=== PATIENT | male | born 1930 | race Caucasian/White ===

== ENCOUNTER → 2016-03-17 | Outpatient (CLI) | payer OTHER ==
--- NOTE | ~2016-03-17 | PR ---
[place], [place] PROGRESS NOTE NAME: THOR YI [facility] #: [id number] UNIT #: [id number] ROOM: DOCTOR: NELIDA NagelCARLOS ALBERTO BIRTHDATE: [birth year] DOS: 03/17/2016 NEW PATIENT EVALUATION CHIEF COMPLAINT: Left leg ulceration. HISTORY OF PRESENT ILLNESS: This is an 86-year-old male with a history of type 2 diabetes who was referred to the Wound Clinic for a wound of the left lower extremity, located in the anterior tibia. Apparently, it started out as a blister of the anterior tibia that opened up and there was some surrounding erythema per patient report and some discomfort of the leg. The patient was treated with oral antibiotics, initially was given Keflex and then was reevaluated on the 03/14/2016 and given a script for Bactrim double strength twice a day as he continued to have complaints with the leg. Apparently, there were some complaints of yellow drainage at the time when he was evaluated. The patient says he has about 2 days left of his Bactrim and then will be out of it. Overall, the redness is much improved around the wound according to the patient and the family. His is with him. They deny any fevers or chills. Does not complain of profuse amount of drainage. PAST MEDICAL HISTORY: Significant for the following: He does have a history of leg edema. It is much worse at the end of the day than in the beginning of the day. He has a history of asthma, a history of congestive heart failure, hypertension, coronary artery disease, COPD, diabetes, hyperlipidemia. His most recent sugar that he checked was 80 at breakfast time. He does have a history of stage 4 kidney disease, history of melanoma of the right cheek which is being managed by Dermatology. He has a left rotator cuff repair. FAMILY HISTORY: Significant for stroke in his mother, cancer in his father, mother, and siblings, diabetes in his mother and siblings, heart disease in his father. He is a former smoker. He is . He does not drink alcohol or abuse drugs. ALLERGIES: ARE TO THE FOLLOWING, MORPHINE AND PENICILLIN. CURRENT MEDICATIONS: Low dose aspirin 81 mg daily, Glimepiride 4 mg b.i.d., pioglitazone 30 mg daily, simvastatin 40 daily, lisinopril 2.5 daily, terbutaline 2.5 t.i.d., Lasix 20 daily, methocarbamol 750 t.i.d. as needed, hydrochlorothiazide 25 daily, Keflex, which was completed and now the patient is on double strength Bactrim twice a day. He was given 5 days' worth. REVIEW OF SYSTEMS: He denies any fevers or chills. He does get dyspneic on exertion which is at baseline. No nausea, vomiting, fevers, chills, or diarrhea at the present time. His notes a bump on the outer part of his nose and is asking what I think this is. The patient reporthe has followup appointment with Dermatology. PHYSICAL EXAMINATION: VITAL SIGNS: Blood pressure 142/50, pulse of 80, respirations 20, temperature is 98.4. [place], [place] PROGRESS NOTE NAME: THOR YI UNIT #: [id number] ROOM: DOCTOR: CARLOS ALBERTO KRAUSE M.D. BIRTHDATE: [birth year] GENERAL: This is an elderly male who appears younger than his stated age, in no acute distress. He has no JVD. LUNGS: Have decreased breath sounds in the bases and there is a mild expiratory wheeze. CARDIOVASCULAR: S1, S2, regular rate and rhythm. ABDOMEN: Obese, soft, and nontender. EXTREMITIES: He has about 1-2+ pitting edema bilaterally. He has some chronic venous stasis changes of both of his lower extremities. His pedal pulses are palpable. His feet are warm. He has got a good capillary refill. He does have a wound present on the anterior tibia of the left leg, which is measuring 2.5 x 2.5 x 0.1. There is some minimal surrounding erythema. It is not warm. It is not tender. His SABIHA was 0.93 on the left and 0.8 on the right. There is no necrosis, no purulence noted and it is very superficial. No debridement done. ASSESSMENT AND PLAN: Probable venous stasis ulcer superficial secondary to his edema. I told him to stop using the bacitracin and we will use Adaptic and Puracol Ag for now. He is going to change it every other day and follow up with us in one week. I think he should have some compression stockings. A script was written for a pair of compression stockings, a light compression 10-20 mmHg. I think this would probably he be able to tolerate it fairly well. In addition, I did discuss with concern of Bactrim and renal failure and asked him to instead of taking the double strength to cut it to a single strength for the rest of the time he used to be on the antibiotic, which he only has approximately 2 days left of it. So, I did explain my concern of this and so the patient and the family are aware of the recommendation. Also the area on his nose, the is unsure of. It is not an open wound. It is not a definite ulcer, but there is a protrusion and what appears to be a nodule forming with increased blood vessels and telangiectasias. This may be an early basal cell. I would like the patient to follow up with the advertising analyst when he sees him later this week. Follow up in the Wound Clinic in one week. CARLOS ALBERTO KRAUSE MD CM:PNTRANS [id number] CARLOS ALBERTO KRAUSE M.D. 03/19/16 0752 interface
== END ==
LOC: WOUNDCARE 03:43
DX: E11.622 Type 2 diabetes mellitus with other skin ulcer (principal); L97.821 Non-pressure chronic ulcer of other part of left lower leg limited to breakdown of skin; I87.2 Venous insufficiency (chronic) (peripheral); J44.9 Chronic obstructive pulmonary disease, unspecified; E11.22 Type 2 diabetes mellitus with diabetic chronic kidney disease; I13.0 Hypertensive heart and chronic kidney disease with heart failure and stage 1 through stage 4 chronic kidney disease, or unspecified chronic kidney disease; N18.4 Chronic kidney disease, stage 4 (severe); I50.9 Heart failure, unspecified; E78.5 Hyperlipidemia, unspecified; I25.10 Atherosclerotic heart disease of native coronary artery without angina pectoris; Z85.820 Personal history of malignant melanoma of skin; Z87.891 Personal history of nicotine dependence

== ENCOUNTER → 2016-03-24 | Outpatient (CLI) | payer OTHER ==
--- NOTE | ~2016-03-24 | PR ---
[place], [place] PROGRESS NOTE NAME: THOR YI [facility] #: [id number] UNIT #: [id number] ROOM: DOCTOR: CARLOS ALBERTO KRAUSE M.D. BIRTHDATE: [birth year] DOS: 03/24/2016 CHIEF COMPLAINT: Followup of left leg ulceration. HISTORY OF PRESENT ILLNESS: An 86-year-old male with type 2 diabetes who was seen in the Wound Clinic last week for a superficial ulcer of the left lower extremity that initially started out by a blister and had some concern of cellulitis. The patient was given antibiotics per PCP and was sent here for further management. The patient's wound was noted to be fairly superficial. It had started out as a blister. There was edema that was noted, which is chronic per patient and family report. The patient was advised to use Puracol and Adaptic as a wound dressing. Puracol silver was utilized. The patient after his admission here in the wound clinic a week ago, he apparently had to be admitted to the hospital for worsening renal failure secondary to what sounds like obstructive renal problem, had to have a catheter for drainage of urine so he does have a catheter in at this time. Overall, he is currently not on any antibiotics. His wound appears to have healed. He is denying any pain, fevers, or chills. OBJECTIVE: VITAL SIGNS: Stable. Temperature is 98.6, pulse is 100, respirations 20, blood pressure is 120/60. WOUND EXAMINATION: The wound is healed. It is not open. There is no cellulitis. It has some hemosiderin type staining at this time. It is not pruritic. It is not causing him any discomfort and the edema seems to be improved overall from last week. ASSESSMENT AND PLAN: Healed venous stasis ulcer. We will discharge the patient. At this time, I did recommend for him to try compression stockings as this could be a recurrent problem and he does have a script for it, so once he has got some time to try, he will try and get these done. I did advise to keep the area moisturized and open at this time. CARLOS ALBERTO KRAUSE MD CM:PNTRANS [id number] CARLOS ALBERTO KRAUSE M.D. 03/24/16 2245 interface
== END ==
LOC: WOUNDCARE 01:29
DX: E11.622 Type 2 diabetes mellitus with other skin ulcer (principal); L97.821 Non-pressure chronic ulcer of other part of left lower leg limited to breakdown of skin; I87.2 Venous insufficiency (chronic) (peripheral)

== ENCOUNTER 2018-05-13 15:57 | Emergency (ER) | payer MEDICARE ==
[~2018-05-13] VITALS: Ht 170.1 cm; Wt 84.4 kg
--- NOTE | ~2018-05-13 | EKG ---
[place], [place] ELECTROCARDIOGRAM REPORT NAME: THOR YI UNIT #: [id number] ROOM: DOCTOR: EPIPHANY DRAFT REPORT BIRTHDATE: [birth year] [facility] Test Date: 2018-05-13 Test Time: 16:12:52 Pat Name: THOR YI Department: ER Room: 1 Gender: M Hotel Operations Manager: Radha Watkins : 1930 Requested By: HUMPHREY ZUNIGA Order Number: [id number] Reading MD: Neil Beal MD Measurements Intervals [place] Rate: 91 P: 51 NM: 147 QRS: 6 QRSD: 148 T: 99 QT: 432 QTc: 532 Interpretive Statements Sinus rhythm Nonspecific intraventricular conduction delay Borderline T abnormalities, lateral leads Baseline wander in lead(s) V1,V2 Electronically Signed On 05-17-2018 8:20:08 PDT by Neil Beal MD CM:EKGRPT:ELECTROCARDIOGRAM REPORT 1612 0820 HUMPHREY TUCKER DRAFT REPORT HUMPHREY ZUNIGA M.D.
[2018-05-13 16:18] LABS: BASO # 0.1 10*3/uL (0.0-0.1); BASO % 0.5 % (0.0-1.0); EOS # 0.4 10*3/uL (0.0-0.4); EOS % 4.1 % (1.0-4.0); HEMATOCRIT 36.7 % (42.0-52.0); HEMOGLOBIN 12.3 g/dl (14.0-18.0); MEAN CELL VOLUME 99.2 fl (80.0-94.0); MEAN CORPUSCULAR HGB 33.2 pg (27.0-31.0); MEAN CORPUSCULAR HGB CONC 33.5 g/dl (33.0-37.0); MEAN PLATELET VOLUME 9.4 fl (9.6-12.3); MONO # 0.8 10*3/uL (0.1-1.0); MONO % 8.7 % (3.0-9.0); NEUT # 5.3 10*3/uL (2.3-7.9); NEUT % 55.1 % (47.0-73.0); PLATELET COUNT AUTOMATED 293 10*3/uL (130-400); RED CELL DISTRI WIDTH 12.9 % (0-14.5); WHITE BLOOD COUNT 9.7 10*3/uL (4.8-10.8)
[2018-05-13 16:27] LABS: ACT PARTIAL THROMBO TIME 22.7 SECONDS (20.8-31.5); INTERNATIONAL NORM RATIO 0.9 (2.0-3.5)
[2018-05-13 16:41] LABS: ALBUMIN 3.5 gm/dl (3.1-4.5); ALKALINE PHOSPHATASE 99 U/L (45-117); BUN 32 mg/dl (7-24); CHLORIDE 104 mmol/L (98-107); CREATININE 2.25 mg/dL (0.70-1.30); POTASSIUM 4.7 mmol/L (3.5-5.1); SGOT/AST 20 IU/L (3-35); SGPT/ALT 36 U/L (12-78); SODIUM 139 mmol/L (136-145); TOTAL PROTEIN 7.6 gm/dL (6.4-8.2)
[2018-05-13 16:42] LABS: TROPONIN I < 0.015 ng/ml (<0.045)
[2018-05-13 18:04] VITALS: BP 136/64
[2018-06-04] MEDS ORDERED: JANUVIA50 MG PO (10:39)
[2018-06-04] MEDS ORDERED: FINASTERIDE5 M1 PO (10:39)
[2018-06-04] MEDS ORDERED: FUROSEMIDE20 M1 PO (10:40)
[2018-06-04] MEDS ORDERED: INCRUSE ELLI62.5 MCG INH (10:40)
[2018-06-04] MEDS ORDERED: SIMVASTATIN40 MG PO (10:40)
[2018-06-04] MEDS ORDERED: GLIMEPIRIDE4 M1 PO (10:40)
[2018-06-04] MEDS ORDERED: Brethine2.5 MG PO (10:41)
[2018-06-04] MEDS ORDERED: ASPIRIN CHEWABL81 MG PO (10:41)
[2018-06-04] MEDS ORDERED: Synthroid,Levo50 MCG PO (11:34)
[2018-06-05] MEDS ORDERED: DECADRON4 MG PO (10:00)
== END 2018-05-13 18:39 | disposition home or self-care (01) ==
LOC: ED 15:57
PROVIDERS: Emergency Medicine
DX: R06.02 Shortness of breath (principal); I50.9 Heart failure, unspecified

== ENCOUNTER → 2018-07-07 | Outpatient (CLI) | payer MEDICARE ==
[~2018-07-07] MED LIST: ASPIRIN CHEWABL81 MG PO; BREO ELLIPTA 21 EACH INH; Brethine2.5 MG PO; CLINDAMYCIN HC300 MG PO; COMPAZINE10 M1 PO; DECADRON4 MG PO; FINASTERIDE5 M1 PO; FLOMAX0.4 MG PO; FUROSEMIDE20 M1 PO; GLIMEPIRIDE4 M1 PO; INCRUSE ELLI62.5 MCG INH; Ipratropium Brom3 ML INH; JANUVIA50 MG PO; LANTUS SOL100 UNIT/1 SQ; LASIX20 MG PO; NEURONTIN300 MG PO; OXYGEN NAS; PREDNISONE10 MG PO; SENOKOT-S TABL1 EACH PO; SIMVASTATIN40 MG PO; Synthroid,Levo50 MCG PO; VIBRAMYCIN100 MG PO; VITAMIN D350000 UNIT PO
[2018-07-07 08:51] LABS: BASO % 0.1 % (0.0-1.0); HEMATOCRIT 35.6 % (42.0-52.0); HEMOGLOBIN 11.4 g/dl (14.0-18.0); LYMPH % 13.6 % (27.0-41.0); MEAN CELL VOLUME 101.7 fl (80.0-94.0); MEAN CORPUSCULAR HGB 32.6 pg (27.0-31.0); MEAN PLATELET VOLUME 8.9 fl (9.6-12.3); MONO # 0.7 10*3/uL (0.1-1.0); MONO % 9.3 % (3.0-9.0); NEUT # 5.3 10*3/uL (2.3-7.9); NEUT % 75.3 % (47.0-73.0); PLATELET COUNT AUTOMATED 211 10*3/uL (130-400); RED CELL DISTRI WIDTH 14.1 % (0-14.5); WHITE BLOOD COUNT 7.1 10*3/uL (4.8-10.8)
[2018-07-07 09:24] LABS: ALBUMIN 3.4 gm/dl (3.1-4.5); BILIRUBIN, DIRECT 0.1 mg/dL (0.0-0.2); CREATININE 1.76 mg/dL (0.70-1.30); PHOSPHOROUS 4.3 mg/dL (2.5-4.9); POTASSIUM 4.5 mmol/L (3.5-5.1); TOTAL PROTEIN 6.7 gm/dL (6.4-8.2)
[2018-07-07 09:32] LABS: THYROID STIM HORMONE (HS) 0.112 uIU/ml (0.358-4.75)
== END | disposition home or self-care (01) ==
LOC: LAB 08:04
PROVIDERS: Internal Medicine; Internal Medicine Hematology & Oncology
DX: Z12.5 Encounter for screening for malignant neoplasm of prostate (principal); C79.9 Secondary malignant neoplasm of unspecified site; E11.9 Type 2 diabetes mellitus without complications; I50.9 Heart failure, unspecified

== ENCOUNTER → 2018-07-12 | Outpatient (CLI) | payer MEDICARE ==
[2018-07-12 08:20] LABS: BILIRUBIN NEGATIVE (NEGATIVE); BLOOD NEGATIVE (NEGATIVE); CLARITY SL CLOUDY (CLEAR); COLOR YELLOW (YELLOW); GLUCOSE NEGATIVE (NEGATIVE); KETONE NEGATIVE (NEGATIVE); LEUKO ESTERASE TRACE (NEGATIVE); NITRITE NEGATIVE (NEGATIVE); UROBILINOGEN 0.2 E.U./dl (0.2-1.0)
[2018-07-12 08:28] LABS: BACTERIA 1+; WBC 41-50 wbc/hpf (0-5); YEAST 1+
== END | disposition home or self-care (01) ==
LOC: LAB 07:53
PROVIDERS: Internal Medicine Hematology & Oncology
DX: E11.00 Type 2 diabetes mellitus with hyperosmolarity without nonketotic hyperglycemic-hyperosmolar coma (NKHHC) (principal); C79.9 Secondary malignant neoplasm of unspecified site; G93.9 Disorder of brain, unspecified; E11.22 Type 2 diabetes mellitus with diabetic chronic kidney disease; N18.4 Chronic kidney disease, stage 4 (severe); N39.0 Urinary tract infection, site not specified

== ENCOUNTER → 2018-07-27 | Outpatient (CLI) | payer MEDICARE ==
[2018-07-27 09:42] LABS: HEMATOCRIT 30.5 % (42.0-52.0); HEMOGLOBIN 9.7 g/dl (14.0-18.0); MEAN CORPUSCULAR HGB 32.8 pg (27.0-31.0); MEAN CORPUSCULAR HGB CONC 31.8 g/dl (33.0-37.0); NUCLEATED RED BLOOD CELL 0.2 % (0.0-0.0); PLATELET COUNT AUTOMATED 358 10*3/uL (130-400); RED BLOOD COUNT 2.96 10*6/uL (4.50-5.90); RED CELL DISTRI WIDTH 14.7 % (0-14.5); WHITE BLOOD COUNT 11.6 10*3/uL (4.8-10.8)
[2018-07-27 10:07] LABS: ALBUMIN 2.8 gm/dl (3.1-4.5); POTASSIUM 4.3 mmol/L (3.5-5.1)
[2018-07-27 10:17] LABS: PLATELET SUFFICIENCY NORMAL (NORMAL); POLYCHROMASIA SLIGHT; TOTAL CELLS COUNTED 100 #CELLS
[2018-07-27 10:21] LABS: CREATININE 1.84 mg/dL (0.70-1.30); PHOSPHOROUS 3.1 mg/dL (2.5-4.9); THYROID STIM HORMONE (HS) 2.58 uIU/ml (0.358-4.75); TOTAL PROTEIN 6.5 gm/dL (6.4-8.2)
== END | disposition home or self-care (01) ==
LOC: LAB 09:13
PROVIDERS: Internal Medicine Hematology & Oncology
DX: C79.9 Secondary malignant neoplasm of unspecified site (principal)

== ENCOUNTER → 2018-08-11 | Outpatient (CLI) | payer MEDICARE ==
[2018-08-11 12:05] LABS: BASO # 0.1 10*3/uL (0.0-0.1); BASO % 0.6 % (0.0-1.0); EOS # 0.2 10*3/uL (0.0-0.4); EOS % 1.4 % (1.0-4.0); HEMATOCRIT 27.1 % (42.0-52.0); HEMOGLOBIN 8.5 g/dl (14.0-18.0); LYMPH # 1.9 10*3/uL (1.3-4.4); LYMPH % 13.7 % (27.0-41.0); MEAN CELL VOLUME 101.5 fl (80.0-94.0); MEAN CORPUSCULAR HGB 31.8 pg (27.0-31.0); MEAN CORPUSCULAR HGB CONC 31.4 g/dl (33.0-37.0); MEAN PLATELET VOLUME 9.1 fl (9.6-12.3); MONO # 1.2 10*3/uL (0.1-1.0); MONO % 8.6 % (3.0-9.0); NEUT # 10.2 10*3/uL (2.3-7.9); PLATELET COUNT AUTOMATED 379 10*3/uL (130-400); RED BLOOD COUNT 2.67 10*6/uL (4.50-5.90); RED CELL DISTRI WIDTH 14.6 % (0-14.5); WHITE BLOOD COUNT 13.7 10*3/uL (4.8-10.8)
[2018-08-11 12:31] LABS: ALBUMIN 2.5 gm/dl (3.1-4.5); CREATININE 2.46 mg/dL (0.70-1.30); PHOSPHOROUS 3.2 mg/dL (2.5-4.9); POTASSIUM 4.3 mmol/L (3.5-5.1); TOTAL PROTEIN 7.1 gm/dL (6.4-8.2)
== END | disposition home or self-care (01) ==
LOC: LAB 10:50
PROVIDERS: Internal Medicine Hematology & Oncology
DX: C79.9 Secondary malignant neoplasm of unspecified site (principal); J18.1 Lobar pneumonia, unspecified organism; E11.9 Type 2 diabetes mellitus without complications

== ENCOUNTER 2018-08-12 15:21 | Inpatient (IN) | payer MEDICARE ==
[~2018-08-12] VITALS: Ht 170.1 cm; Wt 82.7 kg
--- NOTE | ~2018-08-12 | CON ---
[place], [place] REPORT OF CONSULTATION NAME: THOR YI [facility] #: [id number] UNIT #: [id number] ROOM: 425 DOCTOR: CHELA JACKSON MD BIRTHDATE: [birth year] DOS: 08/13/2018 PULMONARY CONSULTATION, EVALUATION AND MANAGEMENT CONSULTATION REQUESTED BY: Hospitalist service. REASON FOR CONSULTATION: For the assessment of current ongoing acute respiratory symptoms. HISTORY OF PRESENT ILLNESS: The patient was independently seen and examined in [id number] encounter, history was confirmed. Physical examination performed. Labs for this visit were personally reviewed. Assessment for this visit was personally completed as well. Note done by the biomedical service engineer was approved. HISTORY OF PRESENT ILLNESS: This is an 88-year-old white male patient seen in my office yesterday first time for assessment of ongoing acute respiratory complaints stated by family members. The patient has been noted complex issue has been recently noted with melanoma of the right cheek. The patient underwent surgical excision in 2017. He has been admitted to the hospital in 05/[address] 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 The patient underwent surgical intervention at [facility]. He has been started on radiation therapy, which was completed in the past few days. He has been treated twice in [facility] because of the pneumonia. The patient is thinking that his pneumonia has not been resolved completely and still noted with ongoing active acute infection. He has been seen by the medical oncologist, who was ordered the chest x-ray that was completed as an outpatient in [facility] on 08/11/2018, which was personally reviewed. He had reporting excessive symptoms of coughing with inability to expectorate sputum most of the time. Sputum expectoration has been noted at that time with yellowish and greenish in color. There was no evidence of hemoptysis. The patient was also noted with exertion. The patient has been using oxygen supplementation since his hospitalization in [facility] on last admission. Using oxygen supplementation with the flow of oxygen as 3 LPM continuous use. He was also reported with symptoms of chest tightness and retrosternal chest pain with associated wheezing. The patient was assessed in the office and diagnosed with ongoing acute exacerbation of COPD was made with failed outpatient treatment, ongoing acute pneumonia in the left lower lobe. The case was discussed with hospitalist service, Dr. Pinedo and the arrangements for inpatient treatment were made. He has been receiving broad-spectrum intravenous antibiotics at this time. The patient was also started on bronchodilators. I have started on corticosteroid as well as Solu-Medrol. REVIEW OF SYSTEMS: CONSTITUTIONAL: Fatigue and tiredness noted without any symptoms of fever or chills. EYES: Denies burning, redness, or tenderness. EARS, NOSE, THROAT SYMPTOMS: Denies sore throat, hoarseness, otalgia, postnasal drainage, or epistaxis. [place], [place] REPORT OF CONSULTATION NAME: THOR YI UNIT #: [id number] ROOM: [facility] DOCTOR: KENDY JACKSON MDM BIRTHDATE: [birth year] CARDIOVASCULAR: Denies any angina pain, edema, or pain of the lower extremities. GASTROINTESTINAL: Denies dysphagia, nausea, vomiting, diarrhea, abdominal pain, hematemesis, melena, or hematochezia. SKIN: Denies abnormal lesions or rashes. CENTRAL NERVOUS SYSTEM: No dizziness, headache, diplopia, or syncopal episode. Weakness and fatigue was reported. PAST MEDICAL HISTORY: 1. The patient was known with history of melanoma of the right cheek and later on in the brain, frontal lobe, status post completion of her radiation therapy. 2. Type 2 diabetes mellitus. 3. Essential hypertension. 4. Hypothyroidism. 5. Congestive heart failure. 6. Chronic obstructive pulmonary disease. 7. Chronic hypoxic respiratory failure. PAST SURGICAL HISTORY: Noted as excision of the melanoma from the cheek and the brain as well. The history was not very clear to me. SOCIAL HISTORY: The patient is , has 4 children, lives at home. Tobacco use was known from the age of 67 years old, 1 pack of cigarettes per day until 1988. Denies history of alcohol use or illicit drug use. FAMILY HISTORY: The patient's father at 77-year-old, complication of melanoma. Mother at the age 96 of complication of natural causes. MEDICATIONS: From home were listed as Keppra, levothyroxine, aspirin, vitamin D, gabapentin, DuoNeb, Flomax, Breo Ellipta, Januvia, finasteride, simvastatin, Incruse Ellipta and oxygen 3 LPM. Medication administered today are Mucinex, aspirin, finasteride, Lovenox for DVT prophylaxis, levothyroxine, Lantus insulin, gabapentin, terbutaline sulfate, simvastatin, Solu-Medrol 40 mg b.i.d., IV Levaquin, vancomycin and Zosyn. ALLERGIES: NOTED ALLERGY TO MORPHINE. PHYSICAL EXAMINATION: GENERAL: An 88-year-old white male patient currently noted to be awake and alert without any distress, sitting on side of the bed. Height of 5 feet 7 inches, weight of 182 pounds, BMI 28.5. VITAL SIGNS: He is in normal temperature, respiratory rate of 16-18, heart rate of 107-101, blood pressure 120/53-123/56. Pulse oxygen saturation recorded on 3 liters nasal cannula 97% saturation. HEENT: Examination shows head was atraumatic. Eyes nonicterus. NECK: Supple. CARDIOVASCULAR: S1, S2 is audible. LUNGS: Noted with decreased breath sounds in the lungs bilaterally with mild expiratory wheezing. ABDOMEN: Soft, nontender. Bowel sounds present. [place], [place] REPORT OF CONSULTATION [id number] UNIT #: [id number] ROOM: 425 DOCTOR: BARBARA RUIZ MD,[facility] BIRTHDATE: [birth year] EXTREMITIES: Without any acute edema. MUSCULOSKELETAL: Without any deformities. VISIBLE SKIN: No lesions or rashes. CENTRAL NERVOUS SYSTEM: Noted as intact. LABORATORY DATA: CMP yesterday in the Emergency Room, BUN 30, creatinine 1.92, glucose 204. Remaining electrolytes were normal. Troponin was noted as normal. PT/INR was normal yesterday. CBC in the emergency room, WBC count 12.4, hemoglobin 8.1, hematocrit 25.7, platelet count of 301,000. The CBC that was done this morning as WBC count 9.5, hemoglobin 7.4, platelet count was noted as normal. CMP that was done this morning, BUN 29, creatinine 1.73. Glucose of 305. Arterial blood gas, pH of 7.37, pCO2 of 40, pO2 70.2 on 3 liters nasal cannula of oxygen. On review of the chest x-ray that was done on 08/11/2018 was noted with evidence of acute infiltration in the left lower lobe with changes in COPD and hyperinflation. Chest x-ray that was done yesterday was also reviewed shows partial reduction of previous noted pulmonary infiltration. IMPRESSION: 1. The patient will be currently admitted to the hospital with ongoing acute exacerbation of chronic obstructive pulmonary disease. 2. Acute pneumonia with history of area of atelectasis left lower lobe. 3. Acute kidney injury. Possible consideration of chronic kidney disease as well secondary to hypovolemia. 4. Recent diagnosis of metastatic cancer involving the frontal lobe with recent completion of radiation therapy has diagnosed in 05/2018. 5. History of type 2 diabetes mellitus. 6. Uncontrolled diabetes mellitus secondary to use of corticosteroids. 7. Other multiple medical problems and illnesses as noted. PLAN OF TREATMENT: The patient will be continued on current broad-spectrum intravenous antibiotic based on kidney function. Continue Solu-Medrol and the bronchodilators administration. The patient was started on DuoNeb will be changed to albuterol sulfate for the COPD exacerbation management. Sputum for Gram stain culture was already ordered that would be collected. The patient was also ordered urine for legionella antigen that would be collected. Bronchoscopy planned to be done on Thursday morning to further assess the endobronchial tree because of the nonresolving respiratory symptoms with hospitalization twice for the pneumonia and third time in this hospital as well. The reduction of the antibiotic with change in spectrum of antibiotic use after the final culture results would become available on sputum or bronchial washings. Other therapy, plan and management with additional treatment changes will be made based on progression of illness of this patient. Usual care. Thanks for allowing me to participate in the care of this patient. [place], [place] REPORT OF CONSULTATION NAME: THOR YI UNIT #: [id number] ROOM: 425 DOCTOR: CHELA JACKSON MD BIRTHDATE: [birth year] CHELA JIMENEZ MD CM:CONSTR:REPORT OF CONSULTATION 1323 08/30/18 0925 interface
--- NOTE | ~2018-08-12 | PR ---
[place], [place] PROGRESS NOTE NAME: THOR YI [facility] #: [id number] UNIT #: [id number] ROOM: 425 DOCTOR: BARBARA RUIZ MDCHELA BIRTHDATE: [birth year] DOS: 08/14/2018 SUBJECTIVE: The patient noted comfortable at this time, resting comfortably in the bed. The patient still noted coughing, which was noted nonproductive, shortness of breath, wheezing noted partially decreased. Denies symptoms of fever, chills or hemoptysis. Denies symptoms of nausea, vomiting, diarrhea, abdominal pain. Denies symptoms of hematemesis, melena, or hematochezia. Denies symptoms of pain of the lower extremity, edema of the lower extremities. Denies any headache or diplopia. Remaining systems were reviewed. They were noted all negative. OBJECTIVE: VITAL SIGNS: For the patient, which are recorded this morning as a normal temperature. The respiratory rate of 20, heart rate of 89, blood pressure 105/49. Pulse ox saturation on 2 liters nasal cannula was 94% saturation. HEENT: Examination shows head was atraumatic. Eyes nonicterus. NECK: Supple. CARDIOVASCULAR SYSTEM: S1, S2 audible. LUNGS: Noted without any crackles. Expiratory wheezing was present. ABDOMEN: Soft, nontender. Bowel sounds present. EXTREMITIES: Noted without any acute edema. MUSCULOSKELETAL: Without any acute deformities. CENTRAL NERVOUS SYSTEM: Intact. LABORATORY DATA: CMP done this morning, glucose 389, BUN 33, creatinine 1.89. CBC this morning, WBC count 12.0, hemoglobin 7.3, BMI 23.6, platelet count 402,000. Blood cultures on the 6th no bacterial growth. Final culture results were pending. IMPRESSION: 1. The patient with chronic hypoxic respiratory failure. At this time, acute pneumonia in the left lower lobe with acute exacerbation of chronic obstructive pulmonary disease. 2. Anemia without any evidence of active gastrointestinal bleeding, which was ordered 3. Chronic kidney disease, was also considered. 4. History of melanoma with completion of radiation therapy. PLAN OF MANAGEMENT: No changes in the plan of care at this time will be necessary. Continuation of current plan of management as in progress. Bronchoscopy plan to be done on Thursday morning. In the meantime, continue to maximize other medical management. Usual care. Supportive plan of treatment and therapies. [place], [place] PROGRESS NOTE NAME: THOR YI UNIT #: [id number] ROOM: 425 DOCTOR: CHELA JACKSON MD BIRTHDATE: [birth year] CHELA JIMENEZ MD CM:EDMUNDO [id number] CHELA RUIZ MD 08/14/18 1627 interface
--- NOTE | ~2018-08-12 | EKG ---
[place], [place] ELECTROCARDIOGRAM REPORT NAME: THOR YI UNIT #: [id number] ROOM: 425 DOCTOR: EPIPHANY DRAFT REPORT BIRTHDATE: [birth year] [facility] Test Date: 2018-08-13 Test Time: 17:22:43 Pat Name: THOR YI Department: Room: 425 1 Gender: M Data Entry Clerk: Dilma Kurtz : 1930 Requested By: CHELA RUIZ Order Number: [id number] Reading MD: Nava Ibarra MD Measurements Intervals [place] Rate: 109 P: NV: QRS: 8 QRSD: 149 T: 147 QT: 361 QTc: 487 Interpretive Statements Atrial fibrillation Ventricular premature complex Left bundle branch block Baseline wander in lead(s) II,V4,V5 Compared to ECG 08/12/2018 17:41:41 Sinus tachycardia no longer present Electronically Signed On 08-14-2018 15:04:16 PDT by Nava Ibarra MD CM:EKGRPT:ELECTROCARDIOGRAM REPORT 1722 1504 CHELA TUCKER DRAFT REPORT CHELA RUIZ MD
--- NOTE | ~2018-08-12 | PR ---
[place], [place] PROGRESS NOTE NAME: THOR YI UNIT #: [id number] ROOM: 425 DOCTOR: CHELA JACKSON MD BIRTHDATE: [birth year] DOS: 08/17/2018 PULMONARY PROGRESS NOTE SUBJECTIVE: The patient noted comfortable at this time, resting on the bed, significant reduction and improvement in the symptoms of shortness breath and cough noted after completion of bronchoscopy. The cough is noted minimal, shortness of breath decreased. The wheezing was also improved. OBJECTIVE: GENERAL: The patient was comfortably sitting on the bed this morning of assessment. VITAL SIGNS: Normal temperature, respiratory rate 18, heart rate of 93, blood pressure 129/65. Pulse oxygen saturation 3 liters nasal cannula 98% saturation. HEENT: Head was atraumatic. Eyes nonicterus. NECK: Supple. CARDIOVASCULAR: S1, S2 is audible. LUNGS: Noted clear of any wheezing or crackles this morning. ABDOMEN: Soft, nontender. Bowel sounds present. SKIN: The patient was noted without any acute edema. MUSCULOSKELETAL: Without deformities. LABORATORY DATA: Urine strep antigen and legionella antigen both came back negative. The routine culture of the bronchial washing, moderate growth of yeast and normal arnoldo, final culture results were pending. Gram-stain showed few white blood cells, moderate epithelial cells, moderate budding yeast. IMPRESSION: 1. The patient with progressive gradual resolution of the acute exacerbation of chronic obstructive pulmonary disease as well as acute pneumonia in the left lower lobe as well. 2. Chronic hypoxic respiratory failure, remains stable. PLAN OF TREATMENT: Would be considered for home discharge at the present time. Continue the patient on other therapy, plan of management and care plan as well. [place], [place] PROGRESS NOTE NAME: THOR YI UNIT #: [id number] ROOM: 425 DOCTOR: CHELA JACKSON MD BIRTHDATE: [birth year] CHELA JIMENEZ MD CM:PNTRANS [id number] CHELA RUIZ MD 08/30/18 0926 interface
--- NOTE | ~2018-08-12 | EKG ---
[place], [place] ELECTROCARDIOGRAM REPORT NAME: THOR YI UNIT #: [id number] ROOM: 425 DOCTOR: GARRETT DRAFT REPORT BIRTHDATE: [birth year] [facility] Test Date: 2018-08-12 Test Time: 17:41:41 Pat Name: THOR YI Department: Room: 425 1 Gender: M Poultry Picker: : 1930 Requested By: ELIZA GALVAN Order Number: [id number] Reading MD: Kashif Argueta MD Measurements Intervals [place] Rate: 101 P: 83 GA: 153 QRS: 6 QRSD: 149 T: 89 QT: 406 QTc: 527 Interpretive Statements Sinus tachycardia Multiform ventricular premature complexes Left bundle branch block Compared to ECG 06/04/2018 08:11:10 Ventricular premature complex(es) now present Sinus rhythm no longer present Electronically Signed On 08-13-2018 9:14:02 PDT by Kashif Argueta MD CM:EKGRPT:ELECTROCARDIOGRAM REPORT 1741 0914 ELIZA JOE DRAFT REPORT ELIZA GALVAN DO
--- NOTE | ~2018-08-12 | PR ---
[place], [place] PROGRESS NOTE NAME: [facility] #: [id number] UNIT #: [id number] ROOM: 425 DOCTOR: BARBARA RUIZ MD,CHELA BIRTHDATE: [birth year] DOS: 08/15/2018 PULMONARY PROGRESS NOTE SUBJECTIVE: The patient was seen and examined on 08/15/2018, has been still noted coughing without any sputum expectoration; however, shortness breath, wheezing was improving. There were no symptoms of fever or chills, chest pain or hemoptysis. OBJECTIVE: VITAL SIGNS: For the patient normal temperature, respiratory rate 20, heart rate of 104, blood pressure 117/60. The pulse oxygen saturation recorded related to 97% saturation. HEENT: Head was atraumatic. Eyes nonicterus. NECK: Supple. CARDIOVASCULAR: S1, S2 audible. LUNGS: The patient was noted without any crackles or rhonchi. Mild expiratory wheezing bilaterally. ABDOMEN: Soft, nontender. Bowel sounds present. LABORATORY DATA: CBC: WBC count 12.8, hemoglobin 7.3, hematocrit 23.5. The platelet count 409,000. CMP this morning, BUN 27, creatinine 1.72. IMPRESSION: Acute exacerbation of chronic obstructive pulmonary disease. The patient noted with acute tracheobronchitis at the present time and acute pneumonia of the left lower lobe. Elevation of BUN and creatinine. PLAN OF MANAGEMENT: No change in plan of care at this time. Continue the patient's current plan of management. Plan is to do a bronchoscopy in the morning. The risk and benefits has been already discussed with the patient and the patient was agreeable for the procedure. CHELA JIMENEZ MD CM:PNTRANS [id number] CHELA RUIZ MD 08/15/18 2326 interface
--- NOTE | ~2018-08-12 | PROC NOTE ---
[place], [place] [id number] #: [id number] ROOM: 425 DOCTOR: BARBARA RUIZ MD,CHELA BIRTHDATE: [birth year] DOS: 08/16/2018 PROCEDURE: Bronchoscopy. PREOPERATIVE DIAGNOSIS: The patient with coughing and wheezing as well as left lower lobe pneumonia. POSTOPERATIVE DIAGNOSIS: Removal of moderate amount of mucus impaction from major airway bilaterally. There were evidence of endobronchial lesions. COMPLICATIONS: None. ANESTHESIA: Local MAC. PROCEDURE DESCRIPTION: Informed consent obtained from the patient. The patient was brought to the OR and placed in a supine position. Conscious sedation administered by the Anesthesia Department. After achieving proper sedation, airway introduced into the mouth. Bronchoscope advanced to the airway into laryngeal area. Epiglottis and vocal cords were seen. Bronchoscope advanced to the vocal cords into the tracheal lumen and noted with moderate amount of secretion in the tracheal lumen, which was suctioned out. All secretions suctioned out clear with the help of normal saline wash. Ana was seen. Left upper, lingula, lower lobe, right upper, middle and the right lower lobe were all inspected. Moderate amount of mucus present in the endobronchial tree subsegments. All of the subsegments, which were cleared up with normal saline wash were sent for cultures. Procedure well tolerated by the patient without difficulty. Postoperative findings were discussed with the patient's family members in detail. No changes in the treatment at this time will be needed. CHELA JIMENEZ MD CM:PROCNOTE:PROCEDURE NOTE [id number] CHELA RUIZ MD
--- NOTE | ~2018-08-12 | PR ---
[place], [place] PROGRESS NOTE NAME: [facility]OR YI [facility] #: [id number] UNIT #: [id number] ROOM: 425 DOCTOR: BARBARA RUIZ MDCHELA BIRTHDATE: [birth year] DOS: 08/16/2018 PULMONARY PROGRESS NOTE SUBJECTIVE: The patient is n.p.o. past midnight for bronchoscopy. He is still reporting symptoms of cough, without any sputum expectoration or shortness of breath. Wheezing is decreasing. There are no symptoms of chest pain reported. Denies symptoms of headache, diplopia, nausea, vomiting, diarrhea, abdominal pain, hematemesis, melena, or hematochezia. Denies symptoms of fever or chills. Denies any pain of the lower extremities. Remaining systems were reviewed and they were noted all negative. OBJECTIVE: VITAL SIGNS: Which were recorded show the temperature recorded as normal, respiratory rate 20, heart rate 101, blood pressure 131/57. Pulse oxygen saturation on 3 liters nasal cannula 95% saturation. HEENT: Examination shows head is atraumatic. Eye nonicterus. NECK: Supple. CARDIOVASCULAR: S1 and S2 audible. LUNGS: Noted without any wheezing or crackles at the present time. Breaths are noted decreased in the lungs bilaterally. ABDOMEN: Soft, nontender. Bowel sounds present. EXTREMITIES: Noted without any acute edema. MUSCULOSKELETAL: Noted without any acute deformities. CENTRAL NERVOUS SYSTEM: Noted intact. LABORATORY DATA: Culture of the sputum of 08/14/2018, final results noted as light growth of yeast. CBC this morning - WBC count 13.5, hemoglobin 7.9, hematocrit 25.8, platelet count 436,000. BMP this morning - BUN 29, creatinine 1.88. IMPRESSION: 1. Acute exacerbation of chronic obstructive pulmonary disease, acute left lower lobe pneumonia, with improvement noted in respiratory symptoms, cough still noted nonproductive most of the time. 2. The patient with increased BUN and creatinine as well noted. 3. Leukocytosis and anemia. 4. 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 PLAN OF MANAGEMENT: Proceed with fiberoptic bronchoscopy as planned for the patient today. No changes in treatment specifically need to be done right this minute. Change in treatment will be ordered based on progression of the illness. Solu-Medrol will be continued at the same dose from yesterday. [place], [place] PROGRESS NOTE NAME: THOR YI UNIT #: [id number] ROOM: 425 DOCTOR: BARBARA RUIZ MD,CHELA BIRTHDATE: [birth year] CHELA JIMENEZ MD CM:[id number] [id number] CHELA RUIZ MD 08/16/18 1329 interface
[~2018-08-12 15:21] MED LIST changes: -BREO ELLIPTA 21 EACH INH; -CLINDAMYCIN HC300 MG PO; -COMPAZINE10 M1 PO; -FLOMAX0.4 MG PO; -Ipratropium Brom3 ML INH; -LANTUS SOL100 UNIT/1 SQ; -LASIX20 MG PO; -NEURONTIN300 MG PO; -OXYGEN NAS; -PREDNISONE10 MG PO; -SENOKOT-S TABL1 EACH PO; -VIBRAMYCIN100 MG PO; -VITAMIN D350000 UNIT PO
[2018-08-12 15:40] VITALS: BP 128/53
--- NOTE | 2018-08-12 15:40 | NUR ---
A 88, admitted to , under the services of ELIZA Solis DO with a diagnosis of LEFT LOWER LOBE PNEUMONIA, RESPIRATORY FAILURE. Chief complaint is RECENT PNEUMONIA FROM 2 WEEKS AGO. Patient arrived via wheel chair from [place]. Monitor applied. Initial assessment completed. Vital signs taken and recorded. ELIZA SOLIS DO notified of admission to the unit. Orders received. See assessment for past medical history, medications and allergies. Patient and/or family oriented to unit. [facility] visitation policy reviewed. Clothing/patient valuable form completed. CRISTIN GUILLEN
[2018-08-12 16:00] VITALS: BP 128/53
[2018-08-12] MEDS ORDERED: NEURONTIN300 MG PO (16:02)
[2018-08-12] MEDS ORDERED: LASIX20 MG PO (16:02)
[2018-08-12] MEDS ORDERED: VITAMIN D350000 UNIT PO (16:04)
[2018-08-12] MEDS ORDERED: JANUVIA50 MG PO (16:04)
[2018-08-12] MEDS ORDERED: Ipratropium Brom3 ML INH (16:05)
[2018-08-12] MEDS ORDERED: BREO ELLIPTA 21 EACH INH (16:06)
[2018-08-12] MEDS ORDERED: FLOMAX0.4 MG PO (16:06)
[2018-08-12] MEDS ORDERED: COMPAZINE10 M1 PO (16:07)
[2018-08-12] MEDS ORDERED: SENOKOT-S TABL1 EACH PO (16:07)
[2018-08-12] MEDS ORDERED: OXYGEN NAS (16:08)
[2018-08-12] MEDS ORDERED: LANTUS SOL100 UNIT/1 SQ (16:08)
[2018-08-12 17:49] LABS: BASO # 0.1 10*3/uL (0.0-0.1); BASO % 0.6 % (0.0-1.0); EOS # 0.4 10*3/uL (0.0-0.4); EOS % 3.1 % (1.0-4.0); HEMATOCRIT 25.7 % (42.0-52.0); HEMOGLOBIN 8.1 g/dl (14.0-18.0); LYMPH # 2.6 10*3/uL (1.3-4.4); LYMPH % 20.5 % (27.0-41.0); MEAN CELL VOLUME 101.6 fl (80.0-94.0); MEAN CORPUSCULAR HGB CONC 31.5 g/dl (33.0-37.0); MONO # 1.3 10*3/uL (0.1-1.0); MONO % 10.4 % (3.0-9.0); NEUT # 7.9 10*3/uL (2.3-7.9); NEUT % 63.7 % (47.0-73.0); PLATELET COUNT AUTOMATED 381 10*3/uL (130-400); RED BLOOD COUNT 2.53 10*6/uL (4.50-5.90); RED CELL DISTRI WIDTH 14.6 % (0-14.5); WHITE BLOOD COUNT 12.4 10*3/uL (4.8-10.8)
[2018-08-12 18:03] LABS: ALBUMIN 2.4 gm/dl (3.1-4.5); CREATININE 1.92 mg/dL (0.70-1.30); POTASSIUM 4.2 mmol/L (3.5-5.1)
--- NOTE | 2018-08-12 18:46 | NUR ---
CONSULT CALLED TO DR JIMENEZ PER PHYSICIAN ORDERS. NEW ORDERS RECEIVED FROM DR JIMENEZ- SOLUMEDROL 40 MG BID, DUONEBS Q4H, AND ABG LAB DRAWS. WILL NOTIFY PT OF NEW ORDERS.
[2018-08-12 20:00] VITALS: BP 120/65
[2018-08-12 20:13] LABS: BILIRUBIN NEGATIVE (NEGATIVE); BLOOD NEGATIVE (NEGATIVE); CLARITY CLEAR (CLEAR); COLOR YELLOW (YELLOW); GLUCOSE TRACE (NEGATIVE); KETONE NEGATIVE (NEGATIVE); LEUKO ESTERASE NEGATIVE (NEGATIVE); NITRITE NEGATIVE (NEGATIVE); PH 6.5 (5.0-9.0); SPECIFIC GRAVITY <= 1.005 (1.005-1.030); UROBILINOGEN 0.2 E.U./dl (0.2-1.0)
[2018-08-12 20:20] LABS: BACTERIA TRACE; WBC 0-2 wbc/hpf (0-5)
[2018-08-13] VITALS (7 sets, daily range): BP systolic 103–123; BP diastolic 47–57
[2018-08-13 06:22] LABS: BASO % 0.2 % (0.0-1.0); EOS % 0.1 % (1.0-4.0); HEMATOCRIT 23.9 % (42.0-52.0); HEMOGLOBIN 7.4 g/dl (14.0-18.0); LYMPH # 0.6 10*3/uL (1.3-4.4); LYMPH % 6.2 % (27.0-41.0); MEAN CELL VOLUME 101.3 fl (80.0-94.0); MEAN CORPUSCULAR HGB 31.4 pg (27.0-31.0); MEAN PLATELET VOLUME 9.2 fl (9.6-12.3); MONO # 0.1 10*3/uL (0.1-1.0); MONO % 1.2 % (3.0-9.0); NEUT # 8.5 10*3/uL (2.3-7.9); NEUT % 89.9 % (47.0-73.0); PLATELET COUNT AUTOMATED 374 10*3/uL (130-400); RED BLOOD COUNT 2.36 10*6/uL (4.50-5.90); RED CELL DISTRI WIDTH 14.4 % (0-14.5); WHITE BLOOD COUNT 9.5 10*3/uL (4.8-10.8)
[2018-08-13 06:34] LABS: POTASSIUM 4.9 mmol/L (3.5-5.1)
[2018-08-13 06:39] LABS: ALBUMIN 2.2 gm/dl (3.1-4.5); CREATININE 1.73 mg/dL (0.70-1.30); PHOSPHOROUS 3.2 mg/dL (2.5-4.9); TOTAL PROTEIN 6.6 gm/dL (6.4-8.2)
[2018-08-13 06:54] LABS: ACT PARTIAL THROMBO TIME 27.2 SECONDS (20.0-32.1)
--- NOTE | 2018-08-13 08:00 | NUR ---
PT SITTING UP IN BED, ALERT ORIENTED AND PLEASANT MOOD WITH NO COMPLAINTS VOICED AT THIS TIME. ASSESSMENT COMPLETE. IV SITE PATENT, DRESSING C/D/I. RESPIRATIONS EASY AND UNLABORD ON 3L NC. WILL CONTINUE TO MONITOR. CALL LIGHT IN REACH.
[2018-08-13 09:18] LABS: ABG BASE EXCESS -1.2 mmol/L (-2.0-2.0); ABG HCO3 23.5 mmol/l (22-26); ABG O2 SATURATION 96.5 % (95-97); ARTERIAL BLOOD GAS PCO2 40.6 mmHg (35-45); ARTERIAL BLOOD GAS PH 7.377 (7.35-7.45); ARTERIAL BLOOD GAS PO2 78.2 mmHg (80-90)
--- NOTE | 2018-08-13 11:59 | NUR ---
Logistical Engineer in to talk to patient. Patient states lives at HOME with . There are FEW steps in the home. Physician: SHAHRIAR Pharmacy: [facility]: HAS A NURSE DAILY, DOES NOT KNOW WHAT COMPANY Patient's level of ADLs: MINIMAL ASSIST Patient has working utilities: DME: [employer] BUT STATES HE DOESN'T USE IT, OXYGEN AND NEBULIZER Follow-up physician's appointment after d/c: WILL BE MADE BY HOSPITALIST NURSE DIRECTOR ON DISCHARGE Does patient want to access PORTAL?: NO Discharge plan PT STATES HE LIVES WITH AT HOME. STATES HE HAS O2 AND NEBULIZER. DENIES ANY OTHER NEEDS AT THIS TIME. WILL CONTINUE TO FOLLOW. PT STATES DAUGHTERS WILL TAKE HIM HOME.. TALI SALAZAR
--- NOTE | 2018-08-13 14:30 | NUR ---
NOTIFIED CASE MANAGEMENT THAT PT FAMILY IS REQUESTING TO MEET WITH THEM REGARDING POWER OF [employer] PAPERWORK.
--- NOTE | 2018-08-13 15:38 | NUR ---
REPORT GIVEN TO SCOOTER CRENSHAW. SHE IS TO TAKE OVER CARE OF PT AT THIS TIME.
[2018-08-14] VITALS: BP 131/55
[2018-08-14 06:09] LABS: ALBUMIN 2.3 gm/dl (3.1-4.5); CREATININE 1.89 mg/dL (0.70-1.30); POTASSIUM 4.3 mmol/L (3.5-5.1)
[2018-08-14 06:10] LABS: TOTAL PROTEIN 6.5 gm/dL (6.4-8.2)
[2018-08-14 06:25] LABS: BASO % 0.2 % (0.0-1.0); HEMATOCRIT 23.6 % (42.0-52.0); HEMOGLOBIN 7.3 g/dl (14.0-18.0); LYMPH # 0.9 10*3/uL (1.3-4.4); LYMPH % 7.2 % (27.0-41.0); MEAN CELL VOLUME 102.2 fl (80.0-94.0); MEAN CORPUSCULAR HGB 31.6 pg (27.0-31.0); MEAN CORPUSCULAR HGB CONC 30.9 g/dl (33.0-37.0); MEAN PLATELET VOLUME 9.4 fl (9.6-12.3); MONO # 0.8 10*3/uL (0.1-1.0); MONO % 6.3 % (3.0-9.0); NEUT # 10.1 10*3/uL (2.3-7.9); NEUT % 84.1 % (47.0-73.0); PLATELET COUNT AUTOMATED 402 10*3/uL (130-400); RED BLOOD COUNT 2.31 10*6/uL (4.50-5.90); RED CELL DISTRI WIDTH 14.6 % (0-14.5)
[2018-08-14 08:00] VITALS: BP 105/49
--- NOTE | 2018-08-14 11:00 | NUR ---
PT IS RESTING COMFORTABLY IN BED AT THIS TIME AND DENIES ANY PAIN OR DISCOMFORT. DAUGHTER IS AT THE BEDSIDE. RESPIRATIONS EASY AND NONLABORED. BED LOCKED & IN LOWEST POSITION, CALL LIGHT IS WITHIN REACH. WILL CONTINUE TO MONITOR PT.
[2018-08-14 12:00] VITALS: BP 121/76
[2018-08-14 16:00] VITALS: BP 125/55
--- NOTE | 2018-08-14 19:00 | NUR ---
PT AWAKE IN BED W/FAMILY AT BEDSIDE DURING BEDSIDE SHIFT REPORT. NO C/O VOICED AT PRESENT TIME. CALL LIGHT IN REACH.
[2018-08-14 20:00] VITALS: BP 131/58
[2018-08-15] VITALS: BP 135/66
[2018-08-15 06:15] LABS: HEMATOCRIT 23.5 % (42.0-52.0); HEMOGLOBIN 7.3 g/dl (14.0-18.0); MEAN CELL VOLUME 101.7 fl (80.0-94.0); MEAN CORPUSCULAR HGB 31.6 pg (27.0-31.0); MEAN CORPUSCULAR HGB CONC 31.1 g/dl (33.0-37.0); MEAN PLATELET VOLUME 9.1 fl (9.6-12.3); PLATELET COUNT AUTOMATED 409 10*3/uL (130-400); RED BLOOD COUNT 2.31 10*6/uL (4.50-5.90); RED CELL DISTRI WIDTH 14.7 % (0-14.5); WHITE BLOOD COUNT 12.8 10*3/uL (4.8-10.8)
[2018-08-15 06:38] LABS: ALBUMIN 2.2 gm/dl (3.1-4.5); CREATININE 1.72 mg/dL (0.70-1.30); POTASSIUM 4.5 mmol/L (3.5-5.1); TOTAL PROTEIN 6.1 gm/dL (6.4-8.2)
[2018-08-15 07:21] LABS: PLATELET SUFFICIENCY HIGH (NORMAL); POLYCHROMASIA SLIGHT; TOTAL CELLS COUNTED 100 #CELLS
[2018-08-15 08:00] VITALS: BP 117/60
[2018-08-15 12:00] VITALS: BP 145/71
[2018-08-15 16:00] VITALS: BP 146/56
--- NOTE | 2018-08-15 19:53 | NUR ---
patient resting in bed with no needs made. denies pain. resps easy and regular. bed in lowest position, call light in reach
[2018-08-15 20:00] VITALS: BP 127/57
[2018-08-16] VITALS (8 sets, daily range): BP systolic 112–133; BP diastolic 45–65
--- NOTE | 2018-08-16 01:38 | NUR ---
PATIENT RESTING IN BED WITH NO NEEDS MADE. RESPS EASY AND REGULAR. BED IN LOWEST POSITION, CALL LIGHT IN REACH
[2018-08-16 06:43] LABS: HEMATOCRIT 25.8 % (42.0-52.0); HEMOGLOBIN 7.9 g/dl (14.0-18.0); MEAN CELL VOLUME 101.6 fl (80.0-94.0); MEAN CORPUSCULAR HGB 31.1 pg (27.0-31.0); MEAN CORPUSCULAR HGB CONC 30.6 g/dl (33.0-37.0); MEAN PLATELET VOLUME 9.2 fl (9.6-12.3); NUCLEATED RED BLOOD CELL 0.2 % (0.0-0.0); PLATELET COUNT AUTOMATED 436 10*3/uL (130-400); RED BLOOD COUNT 2.54 10*6/uL (4.50-5.90); RED CELL DISTRI WIDTH 14.7 % (0-14.5); WHITE BLOOD COUNT 13.5 10*3/uL (4.8-10.8)
--- NOTE | 2018-08-16 06:45 | NUR ---
PATIENT STATES HE WANTS TO WAIT TO GET AM INSULIN UNTIL HE IS NO LONGER NPO.
[2018-08-16 06:59] LABS: CREATININE 1.88 mg/dL (0.70-1.30); POTASSIUM 4.7 mmol/L (3.5-5.1)
[2018-08-16 07:07] LABS: PLATELET SUFFICIENCY HIGH (NORMAL); POLYCHROMASIA SLIGHT; TOTAL CELLS COUNTED 100 #CELLS
--- NOTE | 2018-08-16 13:55 | NUR ---
SPEECH PATHOLOGY Nursing screen completed. There are no reports of acute communication or swallowing difficulty however this dept. will be available should future needs arise. ROULA SESAY MSCCC-BOAT LABORER
--- NOTE | 2018-08-16 19:34 | NUR ---
PATIENT SITTING UP IN CHAIR WATCHING TV. DENIES ANY NEEDS OR SHORTNESS OF BREATH AT THIS TIME. EXPIRATORY WHEEZES NOTED ANTERIORLY AND POSTERIORLY. BED IN LOWEST POSITION, CALL LIGHT IN REACH
[2018-08-17] VITALS: BP 137/70
--- NOTE | 2018-08-17 03:34 | NUR ---
PATIENT RESTING IN BED WITH IV ANTIBIOTICS INFUSING WITHOUT DIFFICULTY. NO S/S OF DISTRESS. RESPS EASY AND REGULAR. BED IN LOWEST POSITION, CALL LIGHT IN REACH
[2018-08-17 08:00] VITALS: BP 129/65
--- NOTE | 2018-08-17 10:45 | NUR ---
PT MORE ALERT TODAY. STATES HE HAS [facility] AT HOME. WILL OBTAIN ORDER AND SEND REFERRAL.
--- NOTE | 2018-08-17 11:26 | NUR ---
Patient to resume [facility] services upon discharge. Received order, faxed clinicals.
[2018-08-17 12:00] VITALS: BP 130/64
[2018-08-17 13:05] LABS: ACID FAST SPEC PROCESSING Concentration (.)
[2018-08-17] MEDS ORDERED: VIBRAMYCIN100 MG PO (15:07)
[2018-08-17] MEDS ORDERED: PREDNISONE10 MG PO (15:07)
--- NOTE | 2018-08-17 16:24 | NUR ---
Discharge instructions reviewed with patient/family. Patient receptive and verbalizes understanding. Follow-up care arranged. Written instructions given to patient/family. Patient was educated on new prescriptions and follow up visits with Dr. Guy and Dr. Mcnair. Patient and daughter were also educated on monitoring SpO2 levels. Patient was wheeled from unit by staff member and daughter with all personal belongings accounted for. FRIDA GARCIA
[2018-09-29 09:06] LABS: ACID FAST CULTURE Negative (.)
== END 2018-08-17 16:24 | disposition home health service (06) | DRG 871 ==
LOC: 4E 15:21
PROVIDERS: Internal Medicine; Internal Medicine Critical Care Medicine; ADMIT Internal Medicine
PROC: 0BC68ZZ Extirpation of Matter from Right Lower Lobe Bronchus, Via Natural or Artificial Opening Endoscopic (ICD-10-PCS; principal; 2018-08-16)
PROC: 0BC88ZZ Extirpation of Matter from Left Upper Lobe Bronchus, Via Natural or Artificial Opening Endoscopic (ICD-10-PCS; principal; 2018-08-16)
PROC: 0BC98ZZ Extirpation of Matter from Lingula Bronchus, Via Natural or Artificial Opening Endoscopic (ICD-10-PCS; principal; 2018-08-16)
PROC: 0BC78ZZ Extirpation of Matter from Left Main Bronchus, Via Natural or Artificial Opening Endoscopic (ICD-10-PCS; principal; 2018-08-16)
PROC: 0BCB8ZZ Extirpation of Matter from Left Lower Lobe Bronchus, Via Natural or Artificial Opening Endoscopic (ICD-10-PCS; principal; 2018-08-16)
PROC: 0BC48ZZ Extirpation of Matter from Right Upper Lobe Bronchus, Via Natural or Artificial Opening Endoscopic (ICD-10-PCS; principal; 2018-08-16)
PROC: 0BC38ZZ Extirpation of Matter from Right Main Bronchus, Via Natural or Artificial Opening Endoscopic (ICD-10-PCS; principal; 2018-08-16)
PROC: 0BC58ZZ Extirpation of Matter from Right Middle Lobe Bronchus, Via Natural or Artificial Opening Endoscopic (ICD-10-PCS; principal; 2018-08-16)
PROC: 0BC18ZZ Extirpation of Matter from Trachea, Via Natural or Artificial Opening Endoscopic (ICD-10-PCS; principal; 2018-08-16)
DX: A41.9 Sepsis, unspecified organism (principal); E43 Unspecified severe protein-calorie malnutrition; J18.1 Lobar pneumonia, unspecified organism; J96.21 Acute and chronic respiratory failure with hypoxia; B37.1 Pulmonary candidiasis; N17.9 Acute kidney failure, unspecified; J44.1 Chronic obstructive pulmonary disease with (acute) exacerbation; I13.0 Hypertensive heart and chronic kidney disease with heart failure and stage 1 through stage 4 chronic kidney disease, or unspecified chronic kidney disease; J44.0 Chronic obstructive pulmonary disease with (acute) lower respiratory infection; I50.9 Heart failure, unspecified; E11.22 Type 2 diabetes mellitus with diabetic chronic kidney disease; N18.3 Chronic kidney disease, stage 3 (moderate); J20.9 Acute bronchitis, unspecified; E11.65 Type 2 diabetes mellitus with hyperglycemia; G93.89 Other specified disorders of brain; D53.9 Nutritional anemia, unspecified; E03.9 Hypothyroidism, unspecified; T38.0X5A Adverse effect of glucocorticoids and synthetic analogues, initial encounter; Y92.89 Other specified places as the place of occurrence of the external cause; Z85.820 Personal history of malignant melanoma of skin; Z82.3 Family history of stroke; Z88.5 Allergy status to narcotic agent; Z98.49 Cataract extraction status, unspecified eye; Z79.82 Long term (current) use of aspirin; Z79.899 Other long term (current) drug therapy; Z92.3 Personal history of irradiation; Z87.01 Personal history of pneumonia (recurrent); Z68.28 Body mass index [BMI] 28.0-28.9, adult

== ENCOUNTER 2018-09-14 12:28 | Emergency (ER) | payer MEDICARE ==
[~2018-09-14] VITALS: Ht 170.1 cm; Wt 82.1 kg
[~2018-09-14 12:28] MED LIST changes: +BREO ELLIPTA 21 EACH INH; +COMPAZINE10 M1 PO; +FLOMAX0.4 MG PO; +Ipratropium Brom3 ML INH; +LANTUS SOL100 UNIT/1 SQ; +LASIX20 MG PO; +NEURONTIN300 MG PO; +OXYGEN NAS; +PREDNISONE10 MG PO; +SENOKOT-S TABL1 EACH PO; +VIBRAMYCIN100 MG PO; +VITAMIN D350000 UNIT PO
[2018-09-14 12:29] VITALS: BP 119/45
[2018-09-14] MEDS ORDERED: CLINDAMYCIN HC300 MG PO (13:12)
== END 2018-09-14 13:26 | disposition home or self-care (01) ==
LOC: ED 12:28
DX: L03.116 Cellulitis of left lower limb (principal); Z91.048 Other nonmedicinal substance allergy status; Z88.5 Allergy status to narcotic agent; Z79.899 Other long term (current) drug therapy; Z79.2 Long term (current) use of antibiotics; Z79.82 Long term (current) use of aspirin

== ENCOUNTER → 2018-09-28 | Outpatient (CLI) | payer MEDICARE ==
[~2018-09-28] MED LIST changes: +CLINDAMYCIN HC300 MG PO
[2018-09-28 09:36] VITALS: BP 152/52
== END | disposition home or self-care (01) ==
LOC: INJECTION 09:23
DX: E11.22 Type 2 diabetes mellitus with diabetic chronic kidney disease (principal); N18.9 Chronic kidney disease, unspecified; D63.1 Anemia in chronic kidney disease; J43.9 Emphysema, unspecified; I25.2 Old myocardial infarction; Z85.841 Personal history of malignant neoplasm of brain; Z85.05 Personal history of malignant neoplasm of liver; Z85.820 Personal history of malignant melanoma of skin; Z87.891 Personal history of nicotine dependence

== ENCOUNTER → 2018-10-21 | Outpatient (CLI) | payer MEDICARE ==
[2018-10-21 12:02] LABS: ALBUMIN 3.3 gm/dl (3.1-4.5); CREATININE 1.9 mg/dL (0.70-1.30); PHOSPHOROUS 3.2 mg/dL (2.5-4.9); POTASSIUM 4.4 mmol/L (3.5-5.1); TOTAL PROTEIN 7.1 gm/dL (6.4-8.2)
[2018-10-21 12:08] LABS: THYROID STIM HORMONE (HS) 2.85 uIU/ml (0.358-4.75)
[2018-10-21 12:26] LABS: BASO # 0.1 10*3/uL (0.0-0.1); BASO % 0.7 % (0.0-1.0); EOS # 0.5 10*3/uL (0.0-0.4); HEMATOCRIT 31.7 % (42.0-52.0); HEMOGLOBIN 9.7 g/dl (14.0-18.0); LYMPH # 2.2 10*3/uL (1.3-4.4); LYMPH % 24.6 % (27.0-41.0); MEAN CELL VOLUME 100.6 fl (80.0-94.0); MEAN CORPUSCULAR HGB 30.8 pg (27.0-31.0); MEAN CORPUSCULAR HGB CONC 30.6 g/dl (33.0-37.0); MEAN PLATELET VOLUME 9.3 fl (9.6-12.3); MONO % 11.4 % (3.0-9.0); NEUT # 5.2 10*3/uL (2.3-7.9); NEUT % 57.7 % (47.0-73.0); PLATELET COUNT AUTOMATED 353 10*3/uL (130-400); RED BLOOD COUNT 3.15 10*6/uL (4.50-5.90); RED CELL DISTRI WIDTH 14.1 % (0-14.5); WHITE BLOOD COUNT 9.1 10*3/uL (4.8-10.8)
== END | disposition home or self-care (01) ==
LOC: LAB 10:50
PROVIDERS: Internal Medicine Hematology & Oncology
DX: C79.9 Secondary malignant neoplasm of unspecified site (principal)

== ENCOUNTER → 2018-10-25 | Outpatient (CLI) | payer MEDICARE ==
[2018-10-25 11:22] LABS: CREATININE 2.05 mg/dL (0.70-1.30); POTASSIUM 4.6 mmol/L (3.5-5.1)
[2018-10-25 11:23] LABS: IRON 61 ug/dL (65-175); TOTAL IRON BINDING CAPACITY 263 ug/dl (250-450)
== END | disposition home or self-care (01) ==
LOC: LAB 10:25
PROVIDERS: Internal Medicine Hematology & Oncology; Student in an Organized Health Care Education/Training Program
DX: C79.9 Secondary malignant neoplasm of unspecified site (principal); D53.9 Nutritional anemia, unspecified

== ENCOUNTER → 2018-11-23 | Outpatient (CLI) | payer MEDICARE ==
[2018-11-23 09:15] LABS: HEMATOCRIT 32.9 % (42.0-52.0); HEMOGLOBIN 10.5 g/dl (14.0-18.0)
[2018-11-23 09:32] VITALS: BP 146/79
== END | disposition home or self-care (01) ==
LOC: INJECTION 08:44
PROVIDERS: Internal Medicine Nephrology
DX: E11.22 Type 2 diabetes mellitus with diabetic chronic kidney disease (principal); N18.9 Chronic kidney disease, unspecified; N20.0 Calculus of kidney; N13.39 Other hydronephrosis; I25.2 Old myocardial infarction; Z83.3 Family history of diabetes mellitus; Z82.49 Family history of ischemic heart disease and other diseases of the circulatory system

== ENCOUNTER → 2019-01-03 | Outpatient (CLI) | payer MEDICARE ==
[2019-01-03 08:54] LABS: HEMOGLOBIN 10.9 g/dl (14.0-18.0)
[2019-01-03 09:26] VITALS: BP 119/44
== END | disposition home or self-care (01) ==
LOC: INJECTION 12-22 10:00
PROVIDERS: Internal Medicine Nephrology
DX: D63.1 Anemia in chronic kidney disease (principal); N18.9 Chronic kidney disease, unspecified

== ENCOUNTER → 2019-03-03 | Outpatient (CLI) | payer MEDICARE ==
[2019-03-03 11:11] LABS: BILIRUBIN NEGATIVE (NEGATIVE); BLOOD NEGATIVE (NEGATIVE); CLARITY CLEAR (CLEAR); COLOR YELLOW (YELLOW); GLUCOSE 2+ (NEGATIVE); KETONE NEGATIVE (NEGATIVE); LEUKO ESTERASE NEGATIVE (NEGATIVE); NITRITE NEGATIVE (NEGATIVE); PH 5.5 (5.0-9.0); UROBILINOGEN 0.2 E.U./dl (0.2-1.0)
[2019-03-03 11:17] LABS: BASO # 0.1 10*3/uL (0.0-0.1); BASO % 0.6 % (0.0-1.0); EOS # 0.2 10*3/uL (0.0-0.4); EOS % 2.7 % (1.0-4.0); HEMATOCRIT 33.1 % (42.0-52.0); HEMOGLOBIN 10.5 g/dl (14.0-18.0); LYMPH # 1.5 10*3/uL (1.3-4.4); MEAN CELL VOLUME 98.5 fl (80.0-94.0); MEAN CORPUSCULAR HGB 31.3 pg (27.0-31.0); MEAN CORPUSCULAR HGB CONC 31.7 g/dl (33.0-37.0); MEAN PLATELET VOLUME 8.9 fl (9.6-12.3); MONO # 0.7 10*3/uL (0.1-1.0); MONO % 8.9 % (3.0-9.0); NEUT # 5.6 10*3/uL (2.3-7.9); NEUT % 68.2 % (47.0-73.0); PLATELET COUNT AUTOMATED 465 10*3/uL (130-400); RED BLOOD COUNT 3.36 10*6/uL (4.50-5.90); RED CELL DISTRI WIDTH 14.6 % (0-14.5); WHITE BLOOD COUNT 8.2 10*3/uL (4.8-10.8)
[2019-03-03 11:19] LABS: WBC 0-2 wbc/hpf (0-5)
[2019-03-03 11:50] LABS: ALBUMIN 2.8 gm/dl (3.1-4.5); CREATININE 2.15 mg/dL (0.70-1.30); POTASSIUM 4.6 mmol/L (3.5-5.1); TOTAL PROTEIN 6.6 gm/dL (6.4-8.2)
[2019-03-03 11:57] LABS: THYROID STIM HORMONE (HS) 1.48 uIU/ml (0.358-4.75)
[2019-03-03 13:07] LABS: VITAMIN D, 25-HYDROXY 109.4 ng/mL (30-100)
[2019-03-04 06:09] LABS: CREATININE,URINE 62.2 mg/dL (Not Estab.); MICRO ALBUMIN/CRE RATIO 6.3 (0.0-30.0)
== END | disposition home or self-care (01) ==
LOC: LAB 10:45
PROVIDERS: Internal Medicine Hematology & Oncology; Internal Medicine Nephrology
DX: C79.9 Secondary malignant neoplasm of unspecified site (principal)

== ENCOUNTER → 2019-03-22 | Outpatient (CLI) | payer MEDICARE ==
[2019-03-22 09:50] LABS: HEMATOCRIT 37.5 % (42.0-52.0); HEMOGLOBIN 11.9 g/dl (14.0-18.0)
== END | disposition home or self-care (01) ==
LOC: INJECTION 09:32
PROVIDERS: Internal Medicine Nephrology
DX: D58.2 Other hemoglobinopathies (principal)

== ENCOUNTER → 2019-05-20 | Outpatient (CLI) | payer MEDICARE | END | disposition home or self-care (01) | LOC: LAB 10:26 | DX: R05 Cough (principal) ==

== ENCOUNTER → 2019-06-13 | Outpatient (CLI) | payer MEDICARE | END | disposition home or self-care (01) | LOC: CT 13:00 | DX: J84.10 Pulmonary fibrosis, unspecified (principal); J98.4 Other disorders of lung; I25.10 Atherosclerotic heart disease of native coronary artery without angina pectoris; I89.8 Other specified noninfective disorders of lymphatic vessels and lymph nodes ==

== ENCOUNTER → 2019-08-24 | Outpatient (CLI) | payer MEDICARE ==
[2019-08-24 10:29] LABS: BASO # 0.1 10*3/uL (0.0-0.1); BASO % 0.6 % (0.0-1.0); EOS # 0.6 10*3/uL (0.0-0.4); EOS % 5.7 % (1.0-4.0); HEMATOCRIT 32.4 % (42.0-52.0); LYMPH # 1.6 10*3/uL (1.3-4.4); LYMPH % 15.6 % (27.0-41.0); MEAN CELL VOLUME 97.3 fl (80.0-94.0); MEAN CORPUSCULAR HGB 30.3 pg (27.0-31.0); MEAN CORPUSCULAR HGB CONC 31.2 g/dl (33.0-37.0); MEAN PLATELET VOLUME 8.8 fl (9.6-12.3); MONO # 0.8 10*3/uL (0.1-1.0); MONO % 8.1 % (3.0-9.0); NEUT % 69.6 % (47.0-73.0); PLATELET COUNT AUTOMATED 355 10*3/uL (130-400); RED BLOOD COUNT 3.33 10*6/uL (4.50-5.90); RED CELL DISTRI WIDTH 14.4 % (0-14.5); WHITE BLOOD COUNT 10.1 10*3/uL (4.8-10.8)
[2019-08-24 10:53] LABS: ALBUMIN 3.3 gm/dl (3.1-4.5); CREATININE 1.84 mg/dL (0.70-1.30); POTASSIUM 4.8 mmol/L (3.5-5.1); TOTAL PROTEIN 7.4 gm/dL (6.4-8.2)
[2019-08-24 11:31] LABS: PTH INTACT 100.3 pg/mL (18.5-88.0); VITAMIN D, 25-HYDROXY 102.2 ng/mL (30-100)
[2019-08-24 15:13] LABS: BILIRUBIN NEGATIVE (NEGATIVE); BLOOD NEGATIVE (NEGATIVE); CLARITY CLEAR (CLEAR); COLOR YELLOW (YELLOW); GLUCOSE 2+ (NEGATIVE); KETONE NEGATIVE (NEGATIVE); LEUKO ESTERASE NEGATIVE (NEGATIVE); NITRITE NEGATIVE (NEGATIVE); PH 6.5 (5.0-9.0); UROBILINOGEN 0.2 E.U./dl (0.2-1.0)
== END | disposition home or self-care (01) ==
LOC: CT 08-15 11:00 → US 08-15 12:30 → LAB 09:20 → US 10:00
PROVIDERS: Internal Medicine Nephrology; Nurse Practitioner Family
DX: Z12.5 Encounter for screening for malignant neoplasm of prostate (principal); I12.9 Hypertensive chronic kidney disease with stage 1 through stage 4 chronic kidney disease, or unspecified chronic kidney disease; N18.4 Chronic kidney disease, stage 4 (severe); J84.10 Pulmonary fibrosis, unspecified; R91.1 Solitary pulmonary nodule; N28.1 Cyst of kidney, acquired; K40.90 Unilateral inguinal hernia, without obstruction or gangrene, not specified as recurrent; R33.9 Retention of urine, unspecified; C77.9 Secondary and unspecified malignant neoplasm of lymph node, unspecified; I10 Essential (primary) hypertension; N39.0 Urinary tract infection, site not specified; D40.0 Neoplasm of uncertain behavior of prostate; E55.9 Vitamin D deficiency, unspecified